=== PATIENT | female | born 1990 | race African-American/Black ===

== ENCOUNTER 2016-07-31 19:55 | Emergency (ER) | payer OTHER ==
[~2016-07-31] VITALS: Ht 167.6 cm; Wt 85.7 kg
[2016-07-31 20:22] LABS: URINE BILIRUBIN NEGATIVE (Negative); URINE BLOOD TRACE (Negative); URINE COLOR YELLOW; URINE GLUCOSE-RANDOM* NEGATIVE (Negative); URINE KETONES NEGATIVE (Negative); URINE NITRITE NEGATIVE (Negative); URINE PROTEIN (DIPSTICK) NEGATIVE (Negative); URINE SPECIFIC GRAVITY <= 1.005 (1.003-1.035); URINE UROBILINOGEN 0.2 E.U./dl (0.2-1.0)
[2016-07-31] MEDS ORDERED: TRINATE TABLET1 TAB PO (20:41)
[2016-07-31] MEDS ORDERED: GLYBURIDE 2.52.5 M1 PO (20:41)
[2016-07-31 21:03] LABS: ABSOLUTE NEUTROPHILS 6.3 thou/uL (1.4-8.2); BASOPHILS 0.6 % (0.0-2.0); EOSINOPHILS 2.7 % (0.0-3.0); HEMATOCRIT 33.5 % (37.0-47.0); HEMOGLOBIN 11.3 gm/dL (12.0-15.0); LYMPHOCYTES 20.9 % (24.0-44.0); MCH 25.7 pg (26.0-34.0); MCHC 33.6 g/dL (28.0-37.0); MCV 76.5 fL (80.0-100.0); MONOCYTES 9.7 % (1.0-8.0); PLATELET COUNT 273 thou/uL (150-400); POLYS 66.1 % (36.0-66.0); RBC 4.39 mil/uL (4.20-5.00); RDW 16.5 % (10.5-14.5); WBC 9.5 thou/uL (4.0-11.0)
[2016-07-31 21:10] LABS: CALCIUM 8.9 mg/dL (8.5-10.1); CREATININE 0.7 mg/dL (0.6-1.0); POTASSIUM 4.2 mmol/L (3.5-5.1)
[2016-07-31 21:14] LABS: ALBUMIN 2.7 g/dL (3.4-5.0); TOTAL BILIRUBIN 0.3 mg/dL (<0.1-1.0)
[2016-07-31 21:15] LABS: MANUAL DIFF NO
[2016-07-31 23:45] VITALS: BP 118/75
== END 2016-07-31 23:46 | disposition home or self-care (01) ==
LOC: ER 19:55
PROVIDERS: Nurse Practitioner Family
DX: O26.893 Other specified pregnancy related conditions, third trimester (principal); N13.30 Unspecified hydronephrosis; Z3A.32 32 weeks gestation of pregnancy; Z98.890 Other specified postprocedural states; Z88.1 Allergy status to other antibiotic agents